=== PATIENT | female | born 1960 | race Caucasian/White ===

== ENCOUNTER → 2017-12-26 | Outpatient (CLI) | payer OTHER ==
[~2017-12-26] MED LIST: CHLO500T3 PO; CYCL10TA7 PO; GABA-531 PO; LOSA50TA37 PO; METF500T6 PO; METO25TA6 PO; MONT10TA24 PO; fluoxetine PO
== END | disposition home or self-care (01) ==
LOC: OIH 14:48
PROVIDERS: ATTEND Internal Medicine Cardiovascular Disease
DX: Z13.6 Encounter for screening for cardiovascular disorders (principal)
CPT/HCPCS: 75571

== ENCOUNTER → 2018-01-06 | Outpatient (CLI) | payer OTHER ==
[~2018-01-06] MED LIST changes: +REGADENOSON 0.4 MG/5 ML PF SYG IVP SCH
== END | disposition home or self-care (01) ==
LOC: RAH 08:44
PROVIDERS: ATTEND Internal Medicine Cardiovascular Disease
DX: R06.02 Shortness of breath (principal)
CPT/HCPCS: 78452; 93017; 96374; A9500 ×2; J2785

== ENCOUNTER 2018-02-01 07:34 | Day surgery (SDC) | payer OTHER ==
[2018-02-01] VITALS (9 sets, daily range): BP systolic 94–127; BP diastolic 34–57
[~2018-02-01 07:34] MED LIST changes: -REGADENOSON 0.4 MG/5 ML PF SYG IVP SCH
[2018-02-01 08:25] LABS: EOSINOPHILS % (AUTO) 5.2 % (0.0-8.0); HEMATOCRIT 38.1 % (36-48); LYMPHOCYTES % (AUTO) 38.2 % (21.0-51.0); MEAN CORPUSCULAR HEMOGLOBIN 29.3 pg (27.0-33.0); MEAN CORPUSCULAR HGB CONC 33.4 g/dL (32.0-36.0); MEAN CORPUSCULAR VOLUME 87.8 fL (79-99); MONOCYTES % (AUTO) 7.4 % (3.0-13.0); NEUTROPHILS % (AUTO) 48.2 % (40.0-77.0); PLATELET COUNT (AUTO) 300 K/uL (130-400); RED BLOOD CELL COUNT(AUTO) 4.35 MIL/uL (4.00-5.50); RED CELL DISTRIBUTION WIDTH 14.6 % (11.0-15.5); WHITE BLOOD COUNT (AUTO) 7.1 K/uL (4.8-10.8)
[2018-02-01 08:33] LABS: CREATININE 0.9 mg/dL (0.5-1.5); POTASSIUM 5.1 mmol/L (3.5-5.1)
[2018-02-01 08:37] LABS: INR 1.03 (0.85-1.15); PROTHROMBIN TIME 10.8 SEC (9.6-11.6)
[2018-02-01] MEDS ORDERED: FENTANYL CITRATE PF 50 MCG/1 ML 2ML VIAL ONE (09:14)
[2018-02-01] MEDS ORDERED: LIDOCAINE HCL 1% 20 ML VIAL ONE (09:14)
[2018-02-01] MEDS ORDERED: MIDAZOLAM HCL 1 MG/ML 2ML VIAL ONE (09:14)
[2018-02-01] MEDS ORDERED: ACETAMINOPHEN-CODEINE 300/30MG TAB ONE ×2 (10:37→13:26)
== END 2018-02-01 14:35 | disposition home or self-care (01) ==
LOC: DAH 07:34 → EDSTATUS 08:00 → DAH 14:35
PROVIDERS: ATTEND Internal Medicine
DX: J85.0 Gangrene and necrosis of lung (principal); I82.90 Acute embolism and thrombosis of unspecified vein; Z79.01 Long term (current) use of anticoagulants; R91.1 Solitary pulmonary nodule; Z79.899 Other long term (current) drug therapy
CPT/HCPCS: 32405; 36415; 71045; 77012; 80048; 82948; 85025; 85610; 85730; 88305; C1887; J2250; J3010

== ENCOUNTER 2021-05-10 13:40 | Inpatient (IN) | payer OTHER ==
[~2021-05-10] VITALS: Ht 157.5 cm; Wt 113.4 kg
[~2021-05-10 13:40] MED LIST changes: -LOSA50TA37 PO; +LOSA50TA64 PO; +METF-444 PO; -METF500T6 PO; -MONT10TA24 PO; +MONT10TA32 PO
[2021-05-10 14:03] LABS: ABG BASE EXCESS -5.9 mmol/L (-2.0-3.0); ABG HCO3 15.6 mmol/L (21.0-28.0); ABG OXYGEN SATURATION 78.5 % (95.0-99.0); ABG PCO2 22 mmHg (32-45)
[2021-05-10 14:05] LABS: BASOPHILS % (AUTO) 0.2 % (0.0-5.0); EOSINOPHILS % (AUTO) 0.4 % (0.0-8.0); HEMATOCRIT 38.8 % (36-48); LYMPHOCYTES % (AUTO) 13.2 % (21.0-51.0); MEAN CORPUSCULAR HEMOGLOBIN 28.3 pg (27.0-33.0); MEAN CORPUSCULAR VOLUME 83.1 fL (79-99); MONOCYTES % (AUTO) 3.4 % (3.0-13.0); NEUTROPHILS % (AUTO) 74.4 % (40.0-77.0); NUCLEATED RED BLOOD CELLS 0.4 % (0.0-0.19); PLATELET COUNT (AUTO) 259 K/uL (130-400); RED BLOOD CELL COUNT(AUTO) 4.67 MIL/uL (4.00-5.50); RED CELL DISTRIBUTION WIDTH 14.8 % (11.0-15.5); WHITE BLOOD COUNT (AUTO) 13.1 K/uL (4.8-10.8)
[2021-05-10 14:18] VITALS: BP 139/45
[2021-05-10 14:18] LABS: INR 1.07 (0.85-1.15); PROTHROMBIN TIME 11.6 SEC (9.6-11.6)
[2021-05-10 14:19] LABS: PARTIAL THROMBOPLASTIN TIME 25.6 SEC (26.3-35.5)
[2021-05-10 14:21] LABS: APPEARANCE,URINE Cloudy (CLEAR); BILIRUBIN,URINE Negative (NEGATIVE); COLOR,URINE Yellow (YELLOW); GLUCOSE, URINE (UA) Negative (NEGATIVE); KETONES,URINE Trace mg/dL (NEGATIVE); LEUKOCYTE ESTERASE ,URINE Small (NEGATIVE); NITRATE,URINE Negative (NEGATIVE); OCCULT BLOOD,URINE Negative (NEGATIVE); PH,URINE 5.5 (5.0-8.0); PROTEIN,URINE POS 2+ mg/dL (NEGATIVE)
[2021-05-10 14:24] LABS: POTASSIUM 4.1 mmol/L (3.5-5.1)
[2021-05-10] MEDS ORDERED: SOLU-MEDROL 125MG VIAL IVP ONE (14:30)
[2021-05-10] MEDS ORDERED: CEFTRIAXONE 1G VIAL 1 GM in 0.9%NACL 100ML 100 ML IV ONE (14:30)
[2021-05-10] MEDS ORDERED: FAMOTIDINE 20MG VIAL IV ONE ×2 (14:30→15:34)
[2021-05-10 14:31] LABS: ALBUMIN 3.2 g/dL (3.5-5.0); BILIRUBIN,TOTAL 0.9 mg/dL (0.2-1.0); TOTAL PROTEIN, SERUM 7.2 g/dL (6.0-8.3)
[2021-05-10 14:48] LABS: BACTERIA,URINE Moderate /HPF (None Seen); RBC,URINE 0-1 /HPF (0-1)
[2021-05-10 14:49] LABS: SQUAMOUS EPITHELIAL CELL,UR Rare /HPF (0-2)
[2021-05-10] MEDS ORDERED: CEFTRIAXONE 1G VIAL IVP ONE (15:00)
[2021-05-10 15:12] LABS: BILIRUBIN,DIRECT 0.1 mg/dL (0.0-0.3)
[2021-05-10 15:26] LABS: CRP QUANTITATIVE 230.3 mg/L (0.00-9.0)
[2021-05-10] MEDS ORDERED: PHARMACY COMMUNICATION MISC SCH ×3 (15:30→18:30)
[2021-05-10] MEDS ORDERED: ASPIRIN 81 MG EC TAB PO ONE (15:30)
[2021-05-10] MEDS ORDERED: SOLU-MEDROL 125MG VIAL ONE (15:33)
[2021-05-10] MEDS: ALBUTEROL INHALER 90MCG/INH IH SCH ×2 (15:42→20:40)
[2021-05-10 15:47] LABS: HEMOGLOBIN A1C 6.7 % (4.0-6.0)
[2021-05-10] MEDS ORDERED: COMPOUND IV REFRIGERATED 1 EACH IVSOLN MISC PRN (16:00)
[2021-05-10] MEDS ORDERED: REMDESIVIR (EUA) 520 200 MG in 0.9% NACL 250ML 250 ML IV ONE (16:00)
[2021-05-10] MEDS: CEFEPIME HCL 1 GM VIAL IVP SCH (17:51)
[2021-05-10] MEDS ORDERED: ASPIRIN 81 MG EC TAB ONE (18:20)
[2021-05-10] MEDS: DEXAMETHASONE SOD PHOSPHATE 4 MG/ML 1ML VIAL IVP SCH (18:30)
[2021-05-10 19:15] VITALS: BP 153/81
[2021-05-10] MEDS ORDERED: [UNRECOGNIZED DRUG - OTHER] IV ONE (20:00)
[2021-05-10] MEDS ORDERED: TOCILIZUMAB IV ONE (20:00)
[2021-05-10 20:31] VITALS: BP 165/67
[2021-05-10] MEDS: FAMOTIDINE 20MG VIAL IV SCH (20:40)
[2021-05-10] MEDS: ENOXAPARIN SODIUM 120 MG/0.8ML SQ SCH (20:46)
[2021-05-10 21:45] VITALS: BP 150/78
[2021-05-10 22:45] VITALS: BP 159/71
[2021-05-10 23:30] VITALS: BP 166/73
[2021-05-11] VITALS (16 sets, daily range): BP systolic 144–181; BP diastolic 53–95
[2021-05-11] MEDS: INSULIN HUMULIN R 100 UNIT/ML 3ML SQ SCH ×4 (00:16→18:00)
[2021-05-11] MEDS: ALBUTEROL INHALER 90MCG/INH IH SCH ×4 (02:30→20:30)
[2021-05-11] MEDS: CEFEPIME HCL 1 GM VIAL IVP SCH ×2 (04:03→15:14)
[2021-05-11] MEDS: DEXAMETHASONE SOD PHOSPHATE 4 MG/ML 1ML VIAL IVP SCH ×2 (06:34→18:41)
[2021-05-11] MEDS: REMDESIVIR LABS MISC SCH (06:35)
[2021-05-11 06:48] LABS: ALBUMIN 2.4 g/dL (3.5-5.0); BILIRUBIN,DIRECT 0.1 mg/dL (0.0-0.3); BILIRUBIN,TOTAL 0.4 mg/dL (0.2-1.0); TOTAL PROTEIN, SERUM 7.3 g/dL (6.0-8.3)
[2021-05-11 07:21] LABS: ABG BASE EXCESS -5.4 mmol/L (-2.0-3.0); ABG HCO3 19.1 mmol/L (21.0-28.0); ABG OXYGEN SATURATION 94.8 % (95.0-99.0); ABG PCO2 34 mmHg (32-45)
[2021-05-11] MEDS: ENOXAPARIN SODIUM 120 MG/0.8ML SQ SCH ×2 (08:35→20:52)
[2021-05-11] MEDS ORDERED: 0.9%NACL 50ML 50 ML IV ONE (15:01)
[2021-05-11 15:28] LABS: HEMATOCRIT 41.8 % (36-48); MEAN CORPUSCULAR HEMOGLOBIN 27.9 pg (27.0-33.0); MEAN CORPUSCULAR HGB CONC 32.8 g/dL (32.0-36.0); MEAN CORPUSCULAR VOLUME 85.1 fL (79-99); NUCLEATED RED BLOOD CELLS 0.6 % (0.0-0.19); PLATELET COUNT (AUTO) 282 K/uL (130-400); RED BLOOD CELL COUNT(AUTO) 4.91 MIL/uL (4.00-5.50); WHITE BLOOD COUNT (AUTO) 15.2 K/uL (4.8-10.8)
[2021-05-11 15:44] LABS: CREATININE 1.1 mg/dL (0.5-1.5); MAGNESIUM 2.5 mg/dL (1.80-2.40); PHOSPHORUS 4.4 mg/dL (2.5-4.9); POTASSIUM 3.9 mmol/L (3.5-5.1)
[2021-05-11] MEDS: REMDESIVIR (EUA) 520 100 MG in 0.9% NACL 250ML 250 ML IV SCH (16:23)
[2021-05-11 17:15] LABS: BAND NEUTROPHILS % (MANUAL) 24 % (0-2); LYMPHOCYTES % (MANUAL) 9 % (22-44); MAN.DIFF COMMENT-IMPRESSION MANUAL DIFFERENTIAL; MONOCYTES % (MANUAL) 3 % (2-9); REACTIVE LYMPHOCYTES 3 % (0-0); SEGMENTED NEUTROPHILS % 61 % (40-70)
[2021-05-11 17:16] LABS: PLATELET MORPHOLOGY COMMENT LARGE PLTS PRESENT
[2021-05-11] MEDS: FAMOTIDINE 20MG VIAL IV SCH (20:51)
[2021-05-11] MEDS ORDERED: METOPROLOL TARTRATE 1 MG/ML 5ML VIAL IV ONE (23:30)
[2021-05-12] VITALS (23 sets, daily range): BP systolic 44–196; BP diastolic 30–86
[2021-05-12] MEDS: INSULIN HUMULIN R 100 UNIT/ML 3ML SQ SCH ×4 (00:39→18:00)
[2021-05-12] MEDS: ALBUTEROL INHALER 90MCG/INH IH SCH ×2 (02:19→08:30)
[2021-05-12] MEDS: CEFEPIME HCL 1 GM VIAL IVP SCH ×2 (04:07→18:43)
[2021-05-12 05:20] LABS: BASOPHILS % (AUTO) 0.1 % (0.0-5.0); EOSINOPHILS % (AUTO) 0.1 % (0.0-8.0); HEMATOCRIT 44.4 % (36-48); LYMPHOCYTES % (AUTO) 8.7 % (21.0-51.0); MEAN CORPUSCULAR HEMOGLOBIN 27.8 pg (27.0-33.0); MEAN CORPUSCULAR HGB CONC 32.2 g/dL (32.0-36.0); MEAN CORPUSCULAR VOLUME 86.2 fL (79-99); MONOCYTES % (AUTO) 3.5 % (3.0-13.0); NEUTROPHILS % (AUTO) 77.1 % (40.0-77.0); NUCLEATED RED BLOOD CELLS 2.1 % (0.0-0.19); PLATELET COUNT (AUTO) 365 K/uL (130-400); RED BLOOD CELL COUNT(AUTO) 5.15 MIL/uL (4.00-5.50); RED CELL DISTRIBUTION WIDTH 15.2 % (11.0-15.5); WHITE BLOOD COUNT (AUTO) 24.8 K/uL (4.8-10.8)
[2021-05-12] MEDS ORDERED: 0.9% NACL 500ML IV.SOLN 500 ML IV STA (05:41)
[2021-05-12] MEDS: REMDESIVIR LABS MISC SCH (06:00)
[2021-05-12 06:39] LABS: ALBUMIN 2.4 g/dL (3.5-5.0); PHOSPHORUS 5.5 mg/dL (2.5-4.9); POTASSIUM 4.3 mmol/L (3.5-5.1)
[2021-05-12 06:48] LABS: BILIRUBIN,TOTAL 0.3 mg/dL (0.2-1.0); MAGNESIUM 2.7 mg/dL (1.80-2.40)
[2021-05-12] MEDS: SOLU-MEDROL 40MG VIAL IVP SCH ×2 (09:41→20:23)
[2021-05-12] MEDS: ENOXAPARIN SODIUM 120 MG/0.8ML SQ SCH ×2 (09:42→20:24)
[2021-05-12] MEDS ORDERED: DEXMEDETOMIDINE HCL 200 MCG in 0.9%NACL 50ML 50 ML IV STA (12:23)
[2021-05-12] MEDS ORDERED: PROPOFOL 1000 MG/100 ML 100 ML IV ONE (12:28)
[2021-05-12] MEDS ORDERED: 0.9%NACL 1000ML 1,000 ML IV ONE (12:32)
[2021-05-12] MEDS ORDERED: PHARMACY COMMUNICATION MISC SCH ×2 (13:00→18:00)
[2021-05-12] MEDS ORDERED: MIDAZOLAM 100MG-0.9% NS 100ML 100 ML IV SCH (13:00)
[2021-05-12 13:58] LABS: ABG BASE EXCESS -7.5 mmol/L (-2.0-3.0); ABG HCO3 20.2 mmol/L (21.0-28.0); ABG OXYGEN SATURATION 97.2 % (95.0-99.0); ABG PCO2 49 mmHg (32-45)
[2021-05-12] MEDS ORDERED: VASOPRESSIN 40 UNITS in 0.9%NACL 50ML 40 ML IV SCH (14:59)
[2021-05-12] MEDS ORDERED: NOREPINEPHRINE 8MG/NS 250 ML 250 ML IV ONE (15:01)
[2021-05-12] MEDS ORDERED: SODIUM BICARB 8.4% 50ML SYRINGE IVP STA (15:03)
[2021-05-12 15:10] LABS: ABG BASE EXCESS -12.4 mmol/L (-2.0-3.0); ABG HCO3 20.8 mmol/L (21.0-28.0); ABG OXYGEN SATURATION 98.5 % (95.0-99.0); ABG PCO2 89 mmHg (32-45)
[2021-05-12] MEDS ORDERED: DOBUTAMINE 250MG/D5 250ML 250 ML IV SCH (15:12)
[2021-05-12] MEDS ORDERED: DOBUTAMINE 250MG/D5 250ML 250 ML IV ONE (15:18)
[2021-05-12] MEDS ORDERED: SODIUM BICARB 50MEQ 50ML VIAL IV STA (15:28)
[2021-05-12 15:57] LABS: MEAN CORPUSCULAR HEMOGLOBIN 27.9 pg (27.0-33.0); MEAN CORPUSCULAR HGB CONC 31.9 g/dL (32.0-36.0); MEAN CORPUSCULAR VOLUME 87.5 fL (79-99); NUCLEATED RED BLOOD CELLS 2.6 % (0.0-0.19); PLATELET COUNT (AUTO) 421 K/uL (130-400); RED BLOOD CELL COUNT(AUTO) 4.23 MIL/uL (4.00-5.50); RED CELL DISTRIBUTION WIDTH 15.4 % (11.0-15.5)
[2021-05-12] MEDS: CISATRACURIUM BESYLATE 100 MG in 0.9%NACL 100ML 100 ML IV SCH ×3 (16:07→22:43)
[2021-05-12] MEDS: REMDESIVIR (EUA) 520 100 MG in 0.9% NACL 250ML 250 ML IV SCH (16:09)
[2021-05-12] MEDS: FENTANYL 2500MCG+NS 250ML 250 ML IV SCH (16:18)
[2021-05-12] MEDS: NOREPINEPHRINE 4MG/NS 250ML 250 ML IV SCH ×2 (16:19→16:44)
[2021-05-12 16:24] LABS: CREATININE 2.5 mg/dL (0.5-1.5); POTASSIUM 3.8 mmol/L (3.5-5.1)
[2021-05-12 16:29] LABS: ALBUMIN 2.1 g/dL (3.5-5.0); BILIRUBIN,TOTAL 0.4 mg/dL (0.2-1.0); MAGNESIUM 2.8 mg/dL (1.80-2.40); PHOSPHORUS 7.9 mg/dL (2.5-4.9)
[2021-05-12 16:40] LABS: BAND NEUTROPHILS % (MANUAL) 9 % (0-2); EOSINOPHILS % (MANUAL) 3 % (1-6); LYMPHOCYTES % (MANUAL) 7 % (22-44); MAN.DIFF COMMENT-IMPRESSION MANUAL DIFFERENTIAL; MONOCYTES % (MANUAL) 2 % (2-9); SEGMENTED NEUTROPHILS % 79 % (40-70)
[2021-05-12 16:41] LABS: PLATELET MORPHOLOGY COMMENT ADEQUATE
[2021-05-12] MEDS ORDERED: NOREPINEPHRINE BITARTRATE 32 MG in 0.9% NACL 250ML 250 ML IV SCH (18:00)
[2021-05-12] MEDS: ARTIFICAL TEARS SOL 15 ML OP SCH (18:00)
[2021-05-12] MEDS: FAMOTIDINE 20MG VIAL IV SCH (20:23)
[2021-05-13] VITALS (17 sets, daily range): BP systolic 103–130; BP diastolic 30–75
[2021-05-13] MEDS: CISATRACURIUM BESYLATE 100 MG in 0.9%NACL 100ML 100 ML IV SCH ×3 (00:32→05:33)
[2021-05-13] MEDS: ARTIFICAL TEARS SOL 15 ML OP SCH ×2 (00:32→05:58)
[2021-05-13] MEDS: INSULIN HUMULIN R 100 UNIT/ML 3ML SQ SCH ×2 (00:40→05:58)
[2021-05-13] MEDS: CEFEPIME HCL 1 GM VIAL IVP SCH (04:38)
[2021-05-13 04:39] LABS: BASOPHILS % (AUTO) 1.1 % (0.0-5.0); EOSINOPHILS % (AUTO) 1.4 % (0.0-8.0); HEMATOCRIT 35.6 % (36-48); LYMPHOCYTES % (AUTO) 9.5 % (21.0-51.0); MEAN CORPUSCULAR HEMOGLOBIN 27.6 pg (27.0-33.0); MEAN CORPUSCULAR HGB CONC 30.3 g/dL (32.0-36.0); MEAN CORPUSCULAR VOLUME 90.8 fL (79-99); MONOCYTES % (AUTO) 2.8 % (3.0-13.0); NUCLEATED RED BLOOD CELLS 1.9 % (0.0-0.19); PLATELET COUNT (AUTO) 272 K/uL (130-400); RED BLOOD CELL COUNT(AUTO) 3.92 MIL/uL (4.00-5.50); RED CELL DISTRIBUTION WIDTH 15.9 % (11.0-15.5); WHITE BLOOD COUNT (AUTO) 14.8 K/uL (4.8-10.8)
[2021-05-13 04:54] LABS: BILIRUBIN,TOTAL 0.3 mg/dL (0.2-1.0); CREATININE 2.8 mg/dL (0.5-1.5); CRP QUANTITATIVE 60.9 mg/L (0.00-9.0); MAGNESIUM 2.5 mg/dL (1.80-2.40); PHOSPHORUS 4.6 mg/dL (2.5-4.9); POTASSIUM 4.1 mmol/L (3.5-5.1); TOTAL PROTEIN, SERUM 5.6 g/dL (6.0-8.3)
[2021-05-13] MEDS: FENTANYL 2500MCG+NS 250ML 250 ML IV SCH (05:54)
[2021-05-13] MEDS: REMDESIVIR LABS MISC SCH (06:00)
[2021-05-13 06:41] LABS: ABG BASE EXCESS -4.7 mmol/L (-2.0-3.0); ABG HCO3 22.6 mmol/L (21.0-28.0); ABG OXYGEN SATURATION 94.6 % (95.0-99.0); ABG PCO2 52 mmHg (32-45)
[2021-05-13] MEDS: SOLU-MEDROL 40MG VIAL IVP SCH (08:44)
[2021-05-13] MEDS: ENOXAPARIN SODIUM 120 MG/0.8ML SQ SCH (08:45)
[2021-05-13] MEDS ORDERED: MORPHINE 2 MG SYG IV SCH (11:30)
[2021-05-13] MEDS ORDERED: LORAZEPAM 2 MG/ML 1 ML VIAL IVP SCH (11:30)
[2021-05-13] MEDS ORDERED: GLYCOPYRROLATE 1 MG/5 ML SYRINGE IV SCH (11:30)
[2021-05-13] MEDS ORDERED: COMPOUND IV REFRIGERATED 1 EACH IVSOLN MISC PRN (12:00)
== END 2021-05-13 12:14 | DRG 871 ==
LOC: EDH 13:40 → EDHIP 15:07 → 2AH 05-12 10:55
PROVIDERS: ADMIT Internal Medicine; ATTEND Internal Medicine
PROC: 5A09357 Assistance with Respiratory Ventilation, Less than 24 Consecutive Hours, Continuous Positive Airway Pressure (ICD-10-PCS; 2021-05-10)
PROC: XW033E5 Introduction of Remdesivir Anti-infective into Peripheral Vein, Percutaneous Approach, New Technology Group 5 (ICD-10-PCS; 2021-05-10)
PROC: XW033H5 Introduction of Tocilizumab into Peripheral Vein, Percutaneous Approach, New Technology Group 5 (ICD-10-PCS; 2021-05-10)
PROC: 5A09357 Assistance with Respiratory Ventilation, Less than 24 Consecutive Hours, Continuous Positive Airway Pressure (ICD-10-PCS; 2021-05-11)
PROC: 02HV33Z Insertion of Infusion Device into Superior Vena Cava, Percutaneous Approach (ICD-10-PCS; principal; 2021-05-12)
PROC: 5A1935Z Respiratory Ventilation, Less than 24 Consecutive Hours (ICD-10-PCS; 2021-05-12)
PROC: B548ZZA Ultrasonography of Superior Vena Cava, Guidance (ICD-10-PCS; 2021-05-12)
PROC: 03HY32Z Insertion of Monitoring Device into Upper Artery, Percutaneous Approach (ICD-10-PCS; 2021-05-12)
PROC: 0BJ08ZZ Inspection of Tracheobronchial Tree, Via Natural or Artificial Opening Endoscopic (ICD-10-PCS; 2021-05-12)
PROC: 5A09357 Assistance with Respiratory Ventilation, Less than 24 Consecutive Hours, Continuous Positive Airway Pressure (ICD-10-PCS; 2021-05-12)
PROC: 0BH17EZ Insertion of Endotracheal Airway into Trachea, Via Natural or Artificial Opening (ICD-10-PCS; 2021-05-12)
PROC: 0BH17EZ Insertion of Endotracheal Airway into Trachea, Via Natural or Artificial Opening (ICD-10-PCS; 2021-05-12)
DX: A41.9 Sepsis, unspecified organism (principal); U07.1 COVID-19; J12.82 Pneumonia due to coronavirus disease 2019; J80 Acute respiratory distress syndrome; R65.21 Severe sepsis with septic shock; Z68.42 Body mass index [BMI] 45.0-49.9, adult; D68.69 Other thrombophilia; N39.0 Urinary tract infection, site not specified; D72.810 Lymphocytopenia; E78.5 Hyperlipidemia, unspecified; B96.1 Klebsiella pneumoniae [K. pneumoniae] as the cause of diseases classified elsewhere; R77.8 Other specified abnormalities of plasma proteins; E66.01 Morbid (severe) obesity due to excess calories; I10 Essential (primary) hypertension; E11.9 Type 2 diabetes mellitus without complications; Z79.4 Long term (current) use of insulin; Z79.899 Other long term (current) drug therapy; Z90.710 Acquired absence of both cervix and uterus; Z88.8 Allergy status to other drugs, medicaments and biological substances; Z83.3 Family history of diabetes mellitus; Z82.3 Family history of stroke; Z82.0 Family history of epilepsy and other diseases of the nervous system; Z82.49 Family history of ischemic heart disease and other diseases of the circulatory system; Z82.5 Family history of asthma and other chronic lower respiratory diseases
CPT/HCPCS: 31500; 36415; 36600; 71045; 80048; 80053; 80076; 81001; 82248; 82435; 82550; 82728; 82803; 82947; 82948; 83036; 83605; 83615; 83735; 83880; 84100; 84132; 84145; 84295; 84484; 85018; 85025; 85378; 85610; 85651; 85730; 86140; 87040; 87077; 87088; 87186; 87635; 87804; 93005; 93970; 94002; 94003; 94660; G0378; J0692; J0696; J1100; J1250; J1650; J1815; J2060; J2704; J2920; J2930; J3010; J3490; J7030; J7050